=== PATIENT | male | born 1965 | race Caucasian/White ===

== ENCOUNTER 2024-05-02 18:39 | Emergency (ER) | payer MEDICARE, SELFPAY ==
[2024-05-02 19:04] VITALS: BP 165/91; PULSE 64; RESP 19; TEMP 36.6; O2SAT 99; BMI 24.4
--- NOTE | 2024-05-02 20:48 | ED_ITS ---
HPI - Ear Problem General Chief complaint: Ear Stated complaint: ear infection, swelling Time Seen by Provider: 05/02/24 20:09 History of Present Illness HPI Narrative: 58-year-old male presents for 3 days left ear pain. Associated auricular swelling and generalized headache. Patient has been taking [id number] Tylenol, but since his symptoms have persisted he was here today for evaluation. Denies worst headache of life, denies vision changes, neck stiffness, pain behind his ear. Related Data Previous Rx's Medication Instructions Recorded amoxicillin 875 mg-potassium 1 tab PO Q12H #14 tabs 05/02/24 clavulanate 125 mg tablet Patient History Social History Smoking Status: Never smoker Smoking Status: Never smoker alcohol intake frequency: a few times a week Alcohol type: beer Substance Use Type: marijuana Exam Initial Vital Signs Initial Vital Signs: Vital Signs Temperature 98 F 05/02/24 19:04 Pulse Rate 64 05/02/24 19:04 Respiratory Rate 19 05/02/24 19:04 Blood Pressure 165/91 H 05/02/24 19:04 Pulse Oximetry 99 05/02/24 19:04 Oxygen Delivery Method Room Air 05/02/24 19:04 Const: Awake, alert, no acute distress, nontoxic appearing HEENT: PERRLA, EOMI, right ear normal, left ear with swelling right auricle without tenderness to palpation or manipulation, no mastoid tenderness. Left tympanic membrane erythematous, bulging, intact Skin: Warm, Dry, intact, no rashes Neuro: AO x3, CN II-XII grossly intact, moves all extremities Course Orders Ordered: Discontinued Medications Amoxicillin/Clavulanate Potassium (Amoxicillin/Clav 875/125 Mg) 1 tab PO NOW ONE Stop: 05/02/24 20:49 Last Admin: 05/02/24 20:57 Dose: 1 tab Documented By: SHABNAM Vital Signs Vital signs: Vital Signs - 8 hr 05/02/24 19:04 Temperature 98 F Pulse Rate 64 Respiratory Rate 19 Blood Pressure 165/91 H Pulse Oximetry 99 Oxygen Delivery Method Room Air Medical Decision Making MDM Narrative Medical decision making narrative: Otitis media left ear. Patient does have minimal swelling of his left auricle, but no warmth, erythema, or tenderness to palpation or manipulation to suggest perichondritis. No posterior pain to suggest mastoiditis. Since most pharmacies are closed initial dose of Augmentin given in the emergency department and Augmentin sent to pharmacy of choice. Discharge Plan Departure Patient Disposition: Home Clinical Impression: Otitis media, Earache Instructions: Middle Ear Infection Activity Restrictions/Additional Instructions: You appear to have otitis media, or middle ear infection, in your left ear. Antibiotics has been sent to the [facility] in [place]. I recommend alternating 1000 mg of Tylenol and 400 mg of ibuprofen every 4-6 hours as needed for pain or fever. Finish all antibiotics as prescribed even if you feel improved. Prescriptions: New amoxicillin-pot clavulanate 875-125 mg tablet 1 tab PO Q12H Qty: 14 0RF Stand Alone Forms: Patient Portal/API
[2024-05-02] MEDS: AMOXICILLIN/CLAV 875/125 MG 1 TAB PO (20:57)
[2024-05-02 20:58] VITALS: BP 148/82; PULSE 66; RESP 16; TEMP 36.6; O2SAT 99
== END 2024-05-02 20:59 | disposition home or self-care (01) ==
PROVIDERS: Emergency Provider Emergency Medicine
DX: H66.92 Otitis media, unspecified, left ear (principal)
CPT/HCPCS: 99283

== ENCOUNTER 2024-05-04 14:41 | Emergency (ER) | payer MEDICARE, SELFPAY ==
[2024-05-04 15:14] VITALS: BP 145/82; PULSE 69; RESP 16; TEMP 36.8; O2SAT 97; BMI 24.0
[2024-05-04 16:40] VITALS: BP 154/76; PULSE 64; RESP 16; O2SAT 97
--- NOTE | 2024-05-10 19:02 | ED.RECABL ---
HPI - Recheck/Abnormal Lab/Rx <Harinder Woods PA-C - Last Filed: 05/11/24 19:25> General Chief Complaint: Recheck/Abnormal Lab/Rx Stated Complaint: returning patient, ear infection getting worse Time Seen by Provider: 05/04/24 14:42 Source: patient Mode of arrival: Family Vehicle History of Present Illness HPI narrative: 58-year-old male returns to the ED for worsening left ear pain. Patient was seen in the ED on 05/02/2024, diagnosed with otitis media, discharged with antibiotics. Patient has completed the full course of antibiotics, however states that the left external your feels very swollen and painful. Patient also endorses some blisters on the left external ear. No fever, chills, nausea, vomiting. Related Data Previous Rx's Medication Instructions Recorded amoxicillin 875 mg-potassium 1 tab PO Q12H #14 tabs 05/02/24 clavulanate 125 mg tablet Review of Systems <Harinder Woods PA-C - Last Filed: 05/11/24 19:25> Constitutional Constitutional: Denies chills, Denies fatigue, Denies fever(s), Denies frequent falls, Denies lethargy and Denies weakness Eyes Eyes: Denies change in vision, Denies eye discharge, Denies irritation and Denies loss of vision ENT Ears, Nose, Mouth, and Throat: Denies change in voice, Denies dizziness, Denies neck pain, Denies sore throat and Denies throat swelling Comments: Left external ear is swollen, painful with blisters Cardiovascular Cardiovascular: Denies chest pain, Denies irregular heart rhythm, Denies lightheadedness, Denies palpitations, Denies dyspnea, Denies dyspnea on exertion and Denies orthopnea Respiratory Respiratory: Denies cough, Denies dyspnea, Denies dyspnea on exertion and Denies wheezing Gastrointestinal Gastrointestinal: Denies abdominal pain, Denies change in bowel habits, Denies diarrhea, Denies nausea and Denies vomiting Musculoskeletal Musculoskeletal: Denies neck pain and Denies numbness Integumentary/Breasts Skin/Breast: Denies pruritus, Denies erythema, Denies rash and Denies wounds Neurologic Neurologic: Denies behavioral changes, Denies confusion, Denies dizziness, Denies frequent falls, Denies loss of vision, Denies numbness and Denies weakness Psychiatric Psychiatric: Denies anxiety, Denies behavioral changes, Denies confusion, Denies depression, Denies homicidal ideation and Denies suicidal ideation Endocrine Endocrine: Denies fatigue, Denies flushing and Denies palpitations Hematologic/Lymphatic Hematologic/Lymphatic: Denies easy bruising Allergic/Immunologic Allergic/Immunologic: Denies urticaria, Denies throat swelling and Denies wheezing Patient History <Harinder Woods PA-C - Last Filed: 05/11/24 19:25> Social History Smoking Status: Never smoker Smoking Status: Never smoker alcohol intake frequency: a few times a week Alcohol type: beer Substance Use Type: marijuana Exam <Harinder Woods PA-C - Last Filed: 05/11/24 19:25> Narrative Exam Narrative: Const General:?cooperative, healthy appearing and comfortable [facility] Head:?normal to inspection Ears:?hearing grossly normal bilaterally; bilateral tympani are intact and otitis media seem to have resolved Nose:?external nose normal Face and sinus:?normal facial exam and sinuses nontender Mouth:?oral mucosae normal Throat:?posterior oropharynx normal Eyes General:?appearance normal, both eyes and all related structures Neck Neck:?normal visual inspection and no lymphadenopathy noted Resp Effort & Inspection:?normal respiratory effort Auscultation:?clear to auscultation bilaterally Cardio Rate:?regular rate Rhythm:?regular rhythm Integumentary There are multiple blister lesions on the left external ear. There is significant swelling and pain. Blisters consistent with herpes zoster oticus Neuro General:?patient alert, patient awake and patient oriented x3 Initial Vital Signs Initial Vital Signs: Vital Signs Temperature 98.3 F 05/04/24 15:14 Pulse Rate 69 05/04/24 15:14 Respiratory Rate 05/04/24 15:14 Blood Pressure 145/82 H 05/04/24 15:14 Pulse Oximetry 97 05/04/24 15:14 Oxygen Delivery Method Room Air 05/04/24 15:14 <Christen Sosa DO - Last Filed: 05/15/24 07:18> Initial Vital Signs Initial Vital Signs: Vital Signs Temperature 98.3 F 05/04/24 15:14 Pulse Rate 69 05/04/24 15:14 Respiratory Rate 16 05/04/24 15:14 Blood Pressure 145/82 H 05/04/24 15:14 Pulse Oximetry 97 05/04/24 15:14 Oxygen Delivery Method Room Air 05/04/24 15:14 MDM - Recheck/Abnormal Lab/Rx <Harinder Woods PA-C - Last Filed: 05/11/24 19:25> [facility] Narrative Medical decision making narrative: 58-year-old male returns to the ED for worsening left ear pain. Bilateral tympani are intact, otitis media seems to have resolved. There are multiple blister lesions on the left external ear, most consistent with herpes zoster otic us. Viral and bacterial swabs collected and sent. Prescribed valacyclovir. Also prescribed ciprofloxacin to cover for bacterial infection of the external ear. Recommend follow-up with ENT as soon as possible. ED return precautions discussed with patient. Patient verbalized understanding. Medical records reviewed: Yes <Christen Sosa DO - Last Filed: 05/15/24 07:18> [facility] Narrative Medical decision making narrative: 58-year-old male returns to the ED for worsening left ear pain. Bilateral tympani are intact, otitis media seems to have resolved. There are multiple blister lesions on the left external ear, most consistent with herpes zoster otic us. Viral and bacterial swabs collected and sent. Prescribed valacyclovir. Also prescribed ciprofloxacin to cover for bacterial infection of the external ear. Recommend follow-up with ENT as soon as possible. ED return precautions discussed with patient. Patient verbalized understanding. Medical records reviewed: Yes Discharge Plan Departure Patient Disposition: Home Clinical Impression: Herpes zoster oticus Instructions: William Nixon Syndrome Activity Restrictions/Additional Instructions: You were evaluated in the ED today for a left ear infection. It appears that you might have shingles of the left ear which is also called herpes anticus or William Nixon syndrome. You are being prescribed antivirals for it. You were also being prescribed ciprofloxacin to treat any bacterial infection in your ears. Please stop the Augmentin. Please take your medications as prescribed. We have sent a sample for wound culture and will contact you if we need to switch any medications. Please follow-up with [facility] as soon as possible by calling [phone]. Return to the ED if you have worsening symptoms. Prescriptions: No Action amoxicillin-pot clavulanate 875-125 mg tablet 1 tab PO Q12H Qty: 14 0RF Referrals: Miscellaneous,Doctor, [Primary Care Provider] - Stand Alone Forms: Patient Portal/API ED Sign-out <Christen Sosa DO - Last Filed: 05/15/24 07:18> Cosign ED Attending James Attestation: I was immediately available in the department for consultation. Patient called the following day needs physician physician conversation a referral to ENT. I spoke with Dr. 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
== END 2024-05-04 16:40 | disposition home or self-care (01) ==
PROVIDERS: Emergency Provider Student in an Organized Health Care Education/Training Program
DX: B02.21 Postherpetic geniculate ganglionitis (principal)
CPT/HCPCS: 99281